=== PATIENT | male | born 1935 | race Caucasian/White ===

== ENCOUNTER 2018-03-13 10:56 | Inpatient (IN) | payer MEDICARE ==
[~2018-03-13] VITALS: Ht 172.7 cm; Wt 83.9 kg
--- NOTE | 2018-03-13 10:58 | NUR ---
BIB SELF W C/O INTERMITTENT L SIDE CHEST PAIN x 4 DAYS. TO ER BED 3, HOOKED TO QUENCHER OPERATOR, AWAITING MD BAIRD
--- NOTE | 2018-03-13 11:10 | NUR ---
DR ROSALES AT BEDSIDE
[2018-03-13] MEDS ORDERED: ASPIRIN 325 MG TABLET ONE (11:18)
[2018-03-13 11:22] LABS: BASOPHILS % (AUTO) 0.7 % (0.0-2.0); EOSINOPHILS % (AUTO) 2.2 % (0.0-6.0); HEMATOCRIT 43 % (39-51); HEMOGLOBIN 14.4 g/dL (13.5-17.5); LYMPHOCYTES % (AUTO) 21.6 % (20.0-44.0); MEAN CORPUSCULAR HGB CONC 34 g/dl (31.0-36.0); MEAN CORPUSCULAR VOLUME 99 fL (80-96); MONOCYTES # (AUTO) 0.4 /CMM (0.1-1.30); MONOCYTES % (AUTO) 8.7 % (2.0-12.0); NEUTROPHILS # (AUTO) 3.1 /CMM (1.8-8.9); NEUTROPHILS % (AUTO) 66.8 % (43.0-81.0); PLATELET COUNT (AUTO) 119 /CMM (150-450); RED BLOOD CELL COUNT(AUTO) 4.32 MIL/uL (4.5-6.0); WHITE BLOOD COUNT (AUTO) 4.7 K/uL (4.3-11.0)
[2018-03-13 11:30] LABS: CALCIUM, SERUM 8.9 mg/dL (8.5-10.1); CARBON DIOXIDE 30 mmol/L (21-32); CHLORIDE 104 mmol/L (98-107); CREATININE 1.1 mg/dL (0.6-1.3); GLUCOSE 100 mg/dL (74-106); SODIUM SERUM 137 mmol/L (136-145); UREA NITROGEN, BLOOD 22 mg/dL (7-18)
[2018-03-13] MEDS ORDERED: ASPIRIN 325 MG TABLET PO ONE (11:30)
[2018-03-13 11:31] LABS: POTASSIUM 4.3 mmol/L (3.5-5.1)
[2018-03-13 11:36] LABS: ALANINE AMINOTRANSFERASE 29 U/L (12-78); ALBUMIN 3.5 g/dL (3.4-5.0); ALKALINE PHOSPHATASE 73 U/L (46-116); ASPARTATE AMINOTRANSFERASE 19 U/L (15-37); BILIRUBIN,DIRECT 0.1 mg/dL (0.0-0.2); BILIRUBIN,TOTAL 0.5 mg/dL (0.2-1.0); TOTAL PROTEIN, SERUM 6.5 g/dL (6.4-8.2)
--- NOTE | 2018-03-13 12:03 | NUR ---
CALLED [employer] ROTARY CUTTER OPERATOR WAS PAGED.
--- NOTE | 2018-03-13 12:43 | NUR ---
REPORT GIVEN TO OVIDIO THOMASON OF TELEMETRY UNIT
[2018-03-13 13:00] VITALS: BP 153/74
--- NOTE | 2018-03-13 13:00 | NUR ---
PRECISION AGRICULTURE SPECIALIST NOTES RECEIVED PATIENT IN BED ALERT ORIENTED X3 REPORTS CHEST PAIN 04/08. PATIENT ORIENTED TO ROOM. CALL LIGHT WITHIN REACH. PATIENT AMBULATORY. BREATHING EVEN AND UNLABORED. PERIPHERAL IV INTACT PATENT. WILL CONTINUE TO MONITOR.
[2018-03-13] MEDS ORDERED: METO-356 PO (13:28)
[2018-03-13] MEDS ORDERED: UBID30CA11 PO (13:28)
[2018-03-13] MEDS ORDERED: CYAN10009 PO (13:28)
[2018-03-13] MEDS ORDERED: ASPI-1169 PO (13:28)
[2018-03-13] MEDS ORDERED: CHOL50004 PO (13:28)
[2018-03-13] MEDS ORDERED: LISI-603 PO (13:28)
[2018-03-13] MEDS ORDERED: ACETAMINOPHEN 325 MG TABLET PO PRN (14:00)
[2018-03-13] MEDS ORDERED: ONDANSETRON HCL/PF 4 MG/2 ML VIAL IVP PRN (14:00)
[2018-03-13] MEDS ORDERED: ZOLPIDEM TARTRATE 5 MG TABLET PO PRN (14:00)
[2018-03-13] MEDS ORDERED: HYDROCODONE/APAP 5/325MG 1 EACH TABLET PO PRN (14:00)
[2018-03-13] MEDS ORDERED: Z GUARD REMEDY 2 OZ OINT TP PRN (14:00)
[2018-03-13] MEDS ORDERED: MAG HYDROX/AL HYDROX/SIMETH 30 ML UDC PO PRN (14:00)
[2018-03-13] MEDS ORDERED: MAGNESIUM HYDROXIDE 30 ML UDC PO PRN (14:00)
[2018-03-13] MEDS: IV NS 0.9% 1,000 ML IV SCH (14:30)
[2018-03-13 16:00] VITALS: BP 112/59
[2018-03-13] MEDS ORDERED: ENOXAPARIN SODIUM 40 MG/0.4 ML DISP.SYRIN SQ SCH (16:00)
[2018-03-13] MEDS: LISINOPRIL (20MG) 20 MG TABLET PO SCH (16:35)
--- NOTE | 2018-03-13 19:31 | NUR ---
MS RN NOTES PATIENT IN BED RESTING NO SOB OR ACUTE DISTRESS NOTED. ALL DUE MEDICATIONS ADMINISTERED. ALL NEEDS MET ENDORSED CARE TO PM SHIFT.
--- NOTE | 2018-03-13 19:35 | NUR ---
PARENTING SKILLS INSTRUCTOR NOTE RECEIVED PATIENT IN BED ALERT ORIENTED X3 WITH NO C/O PAIN, DISCOMFORT, SOB/. FAMILY AT BEDSIDE. PATIENT ORIENTED TO ROOM. PATIENT IS SB ON THE MONITOR HR 49. PATIENT ON ROOM AIR TOLERATING WELL. CALL LIGHT WITHIN REACH. PATIENT AMBULATORY. BREATHING EVEN AND UNLABORED. PERIPHERAL IV INTACT PATENT. WILL CONTINUE TO MONITOR.
[2018-03-14 00:25] VITALS: BP 125/65
--- NOTE | 2018-03-14 01:59 | NUR ---
JOINERY MACHINIST NOTE PATIENT HR DROPPED TO 39 ON MONITOR CHECKED PATIENT, PATIENT ASYMPTOMATIC, PATIENT SLEEPING EASILY WOKEN UP TOOK BP. BP 114/60 HR 48. RN WILL CONTINUE TO MONITOR.
[2018-03-14] MEDS: IV NS 0.9% 1,000 ML IV SCH ×2 (03:26→16:40)
[2018-03-14 04:00] VITALS: BP 135/74
[2018-03-14 07:46] LABS: BASOPHILS % (AUTO) 0.4 % (0.0-2.0); EOSINOPHILS % (AUTO) 2.6 % (0.0-6.0); HEMATOCRIT 43 % (39-51); HEMOGLOBIN 14.1 g/dL (13.5-17.5); LYMPHOCYTES # (AUTO) 1.3 /CMM (0.8-4.8); LYMPHOCYTES % (AUTO) 32.5 % (20.0-44.0); MEAN CORPUSCULAR HGB CONC 33 g/dl (31.0-36.0); MEAN CORPUSCULAR VOLUME 98 fL (80-96); MONOCYTES # (AUTO) 0.4 /CMM (0.1-1.30); MONOCYTES % (AUTO) 9.7 % (2.0-12.0); NEUTROPHILS # (AUTO) 2.1 /CMM (1.8-8.9); NEUTROPHILS % (AUTO) 54.8 % (43.0-81.0); PLATELET COUNT (AUTO) 122 /CMM (150-450); RED BLOOD CELL COUNT(AUTO) 4.35 MIL/uL (4.5-6.0); WHITE BLOOD COUNT (AUTO) 3.9 K/uL (4.3-11.0)
--- NOTE | 2018-03-14 07:47 | NUR ---
SOLDER LEVELER PRINTED CIRCUIT BOARDS OPENING NOTE RECEIVED PT IN ROOM, WALKING TO NURSES STATION REQUESTING PEN AND PAPER. PT IS ALERT AND ORIENTED X4, DENIES N/V, CHEST PAIN, SOB. BREATHING IS EVEN AND UNLABORED ON ROOM AIR. PT ON DIRECTOR OF NEIGHBORHOOD SERVICE CENTER, SINUS BRADYCARDIAC WITH 1 DEGREE AV BLOCK AND OCCASIONAL PAC AND PVC, HR 46. R AC #20G IV IS INFUSING NS @ 75ML/HR WITHOUT REDNESS OR SWELLING. ASSISTED PT BACK TO ROOM WITH PEN AND PAPER AND INTO CHAIR, PLACE CALL LIGHT WITHIN PT REACH. REVIEWED UNIT ORIENTATION AND USE OF CALL LIGHT FOR ASSISTANCE, PT VERBALIZED AGREEMENT. ALL NEEDS ATTENDED TO. BED IS LOCKED AND IN LOWEST POSITION, SIDE RAILS UP X2.
[2018-03-14 07:57] LABS: CALCIUM, SERUM 8.6 mg/dL (8.5-10.1); CARBON DIOXIDE 29 mmol/L (21-32); CHLORIDE 106 mmol/L (98-107); CREATININE 1.1 mg/dL (0.6-1.3); GLUCOSE 92 mg/dL (74-106); MAGNESIUM 1.9 mg/dL (1.8-2.4); PHOSPHORUS 3.4 mg/dL (2.5-4.9); POTASSIUM 4.3 mmol/L (3.5-5.1); SODIUM SERUM 141 mmol/L (136-145); UREA NITROGEN, BLOOD 22 mg/dL (7-18)
[2018-03-14 08:00] VITALS: BP 138/77
[2018-03-14 08:05] LABS: CHOLESTEROL 201 mg/dL (<200); HDL CHOLESTEROL 51 mg/dL (40-60); LDL 141 mg/dL (0-99); TRIGLYCERIDES 87 mg/dL (30-150)
--- NOTE | 2018-03-14 08:30 | NUR ---
RIVET FLUNKY NOTE DR. LEI AT THE BEDSIDE FOR CONSULTATION.
[2018-03-14] MEDS: LISINOPRIL (20MG) 20 MG TABLET PO SCH ×2 (08:38→17:01)
[2018-03-14] MEDS ORDERED: METOPROLOL SUCCINATE 25 MG TAB.SR.24H PO SCH (09:00)
[2018-03-14] MEDS ORDERED: ASPIRIN 81 MG TAB.CHEW PO SCH (09:00)
[2018-03-14] MEDS ORDERED: CHOLECALCIFEROL 1,000 UNIT TABLET (VIT D3) PO SCH (09:00)
--- NOTE | 2018-03-14 09:33 | NUR ---
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 THE PT STATED IT IS NOT A PACEMAKER AND DOES NOT PROVIDE ANY INTERVENTION REGARDING HIS HEART RATE OR IN THE EVENT OF A DYSRHYTHMIA, THE PT PROVIDED A COPY OF THE MODEL AND SERIAL NUMBER, BUT THE PT DOES NOT KNOW THE NAME OF THE DEVICE. THE NURSE SHOWED DR. LEI THE CARD, PER A MEMBER OF STAFF FROM HIS OFFICE WILL COME CHECK THE DEVICE AND IT IS CALLED A "LOOP RECORDER". A COPY OF THE CARD WAS PLACED IN THE CHART AND THE CARD RETURNED TO THE PT.
[2018-03-14] MEDS ORDERED: IOHEXOL-350 100 ML VIAL IV ONE (10:00)
[2018-03-14] MEDS ORDERED: CT SWABBABLE VALVE TRANS SET 1 EA INFUS.SET MC ONE (10:00)
[2018-03-14] MEDS ORDERED: IV NS 0.9% 250 ML IV ONE (10:01)
--- NOTE | 2018-03-14 10:16 | NUR ---
CONTINUOUS WELD PIPE MILL SUPERVISOR NOTE PT OFF UNIT FOR CTA, CONSENT SIGNED AND PLACED IN CHART. R AC #20G IV IS PATENT, CLEAN, DRY AND INTACT.
--- NOTE | 2018-03-14 10:50 | NUR ---
SALES ESTIMATOR NOTE PT BACK ON UNIT FROM CTA. ASSISTED TO CHAIR AT THE BEDSIDE. SON TED AT THE BEDSIDE. RESTARTED IV FLUIDS AND ORDERED PT A SNACK FROM KITCHEN. BED IS LOCKED AND IN LOWEST POSITION, SIDE RAILS UP X2, CALL LIGHT WITHIN REACH.
[2018-03-14 12:00] VITALS: BP 132/70
--- NOTE | 2018-03-14 14:00 | NUR ---
MS RN NOTE PER CHARGE NURSE ADELAIDA, [facility] REP NAMED JENY WILL BE HERE AT APPROXIMATELY 3PM. INFORMED PT AND SON TED AT THE BEDSIDE, BOTH AGREEABLE TO WAITING. INFORMED DR. HERNANDEZ.
--- NOTE | 2018-03-14 15:00 | NUR ---
MS RN NOTE JENY FROM [facility] AT THE BEDSIDE.
[2018-03-14 16:00] VITALS: BP 123/67
--- NOTE | 2018-03-14 16:16 | NUR ---
MS RN NOTE CONTACTED 'S OFFICE REGARDING RESULTS OF LOOP RECORDER CHECK, AWAITING RESPONSE.
--- NOTE | 2018-03-14 17:00 | NUR ---
MS RN NOTE PER DR. LEI, PT OKAY TO GO HOME AND FOLLOW UP WITH PRIMARY CARE PHYSICIAN.
[2018-03-14 17:01] VITALS: BP 115/66
--- NOTE | 2018-03-14 17:15 | NUR ---
MS RN NOTE INFORMED DR. HERNANDEZ OF RECOMMENDATIONS, PER DR. HUNTER PIMENTEL TO D/C PT.
--- NOTE | 2018-03-14 18:20 | NUR ---
MS RN CLOSING NOTE PT DISCHARGED HOME IN MEDICALLY STABLE CONDITION VIA PRIVATE CAR, ACCOMPANIED BY SON TED. PT IS ALERT AND ORIENTED X4, DENIES N/V, CHEST PAIN, SON. BREATHING IS EVEN AND UNLABORED ON ROOM AIR, VS WNL. R AC PERIPHERAL IV REMOVED WITH CATHETER TIP INTACT. ALL BELONGING ACCOUNTED FOR AND BELONGINGS LIST SIGNED AND PLACED IN CHART. DISCHARGE PAPERWORK AND EDUCATION PROVIDED PER PROTOCOL. PT INFORMED TO CALL 911 OR GO TO THE NEAREST ER FOR ANY CHEST PAIN, SOB, UNILATERAL SWELLING OF THE CALVES, OR A TEMPERATURE THAT DOES NOT RESOLVE WITH TYLENOL ADMINISTRATION. REVIEWED D/C RECOMMENDATIONS INCLUDING TO STOP TAKING METROPOL AND TO FOLLOW UP WITH PRIMARY CARE PROVIDER WITHIN 1 WEEK AND WITH BUTTONHOLE MAKER HAND SCHEDULED. PROVIDED BUSINESS CARD FOR DR. LEI OFFICE REQUESTED BY PT AND SON. PROVIDED COPIES OF REPORT FOR CTA OF THE HEART, CHEST XRAY, ECHOCARDIOGRAM, LABS AND PHYSICIAN CONSULTATION NOTES, AND ORIGINAL COPIES OF [facility] READINGS FROM TODAY. PT AND SON VERBALIZED UNDERSTANDING AND AGREEMENT. THE NURSE ASSIST THE PT DOWN TO THE MAIN LOBBY VIA WHEELCHAIR WITHOUT INCIDENT.
== END 2018-03-14 18:20 | disposition home or self-care (01) | DRG 310 ==
LOC: ER 10:59 → TELE 12:29 → MED 03-14 11:36
PROVIDERS: ADMIT Family Medicine; ATTEND Family Medicine
DX: I49.8 Other specified cardiac arrhythmias (principal); I48.0 Paroxysmal atrial fibrillation; I10 Essential (primary) hypertension; D69.6 Thrombocytopenia, unspecified; Z88.0 Allergy status to penicillin; Z98.890 Other specified postprocedural states; T44.7X5A Adverse effect of beta-adrenoreceptor antagonists, initial encounter; Y92.009 Unspecified place in unspecified non-institutional (private) residence as the place of occurrence of the external cause; Z79.82 Long term (current) use of aspirin; Z79.899 Other long term (current) drug therapy
CPT/HCPCS: 36415; 71045-TC; 75574; 80048-TC; 80061-TC; 80076-TC; 83735-TC; 84100-TC; 84484-TC; 85025-TC; 85730-TC; 87081-TC; 93307-TC; G0378; J1650; J7030; J7050; Q9967

== ENCOUNTER 2018-12-28 20:42 | Emergency (ER) | payer MEDICARE ==
[~2018-12-28] VITALS: Ht 177.8 cm; Wt 83.0 kg
[~2018-12-28 20:42] MED LIST: ASPI-1169 PO; CHOL50004 PO; CYAN-51 PO; LISI-603 PO; UBID30CA11 PO
[2018-12-28 21:21] VITALS: BP 147/75
--- NOTE | 2018-12-28 21:23 | NUR ---
BIBSELF W/ . TO ER BED 4. AAOX4. NO RESP DISTRESS NOTED. AMBULATORY. C/O NOSEBLEED AND HIGH BLOOD PRESSURE. PER PT, NOSE BLEED STARTED @ 7:30PM. PT THEN CHECKED THE BP AND HE REPORTS IT AT 170/90. HE TTOK 2 BABY ASPIRRIN WHICH WAS GIVEN BY A FRIEND. NO ACTIVE BLEEDING NOTED, NO BLOOD NOTED WHEN ASKED TO SPIT. BP UPON CHECKING IS 147/75 W/ HR 59. AT BEDSIDE FOR EVAL. AWAITING ORDERS
== END 2018-12-28 22:09 | disposition home or self-care (01) ==
LOC: ER 20:44
DX: R04.0 Epistaxis (principal); I10 Essential (primary) hypertension; Z95.0 Presence of cardiac pacemaker; Z98.890 Other specified postprocedural states; Z88.0 Allergy status to penicillin; Z79.899 Other long term (current) drug therapy; Z79.82 Long term (current) use of aspirin
CPT/HCPCS: 99283; A6403